=== PATIENT | male | born 1955 | race Caucasian/White ===

== ENCOUNTER → 2021-07-22 | Outpatient (CLI) | payer MEDICARE ==
--- NOTE | 2021-07-22 14:16 | Diagnostic Imaging Report ---
EXAMINATION: Orbits for foreign body. INDICATION: MRI metal check. A single Gonzáles' view was obtained. There are no prior studies available for comparison. FINDINGS: There is no evidence for a radiopaque foreign body overlying the orbits. The osseous structures are intact. There is mucosal thickening of the lateral wall of the right maxillary antrum. The sinuses are otherwise generally clear. IMPRESSION: There is no evidence for a radiopaque foreign body overlying the orbits. Dictated by: Dictated on workstation # [id number]
--- NOTE | 2021-07-22 16:56 | Diagnostic Imaging Report ---
PROCEDURE: MR imaging cervical spine without contrast. TECHNIQUE: Multiplanar, multisequence MR imaging of the cervical spine was performed without contrast. DATE: July 22, 2021. COMPARISON: None. INDICATION: 65-year-old male, neck pain. FINDINGS: The alignment of the cervical spine is unremarkable. There is no evidence of a diffuse marrow infiltrating or replacing process. There is no identified focal concerning bone lesion. The visualized spinal cord is unremarkable. There is mild disc height loss at C4-C5. There is mild disc height loss at C6-C7. There are associated mild endplate degenerative related changes. C2-C3: There is a right lateral recess posterior disc/osteophyte complex. The uncovertebral and facet joints are unremarkable. There is no foraminal narrowing. There is no spinal canal stenosis. C3-C4: There is a small posterior disc/osteophyte complex. The uncovertebral and facet joints are unremarkable. There is moderate bilateral foraminal narrowing. There is no spinal canal stenosis. C4-C5: There is a posterior disc/osteophyte complex. There are mild bilateral uncovertebral degenerative changes. There is severe bilateral foraminal narrowing. There is moderate spinal canal stenosis. C5-C6: There is a small posterior disc/osteophyte complex. There are mild bilateral uncovertebral degenerative changes. There is moderate right and mild left foraminal narrowing. There is mild spinal canal stenosis. C6-C7: There is a posterior disc/osteophyte complex eccentric to the left. There are bilateral uncovertebral degenerative changes. There is severe bilateral foraminal narrowing. There is moderate to severe spinal canal stenosis. C7-T1: There is no disc bulge. The uncovertebral and facet joints are unremarkable. There is no foraminal narrowing. There is no spinal canal stenosis. IMPRESSION: 1. Multilevel disc and uncovertebral degenerative changes of the cervical spine as described level by level above. 2. No identified focal concerning bone lesion. 3. No identified abnormal cord signal. Dictated by: Dictated on workstation # [id number]
== END ==
LOC: RAD 14:00
PROVIDERS: ATTEND Orthopaedic Surgery Orthopaedic Surgery of the Spine
DX: M47.812 Spondylosis without myelopathy or radiculopathy, cervical region (principal); M48.02 Spinal stenosis, cervical region; M25.78 Osteophyte, vertebrae
CPT/HCPCS: 72141

== ENCOUNTER → 2022-02-07 | Outpatient (CLI) | payer MEDICARE ==
--- NOTE | 2022-02-07 14:51 | Diagnostic Imaging Report ---
PROCEDURE: CT cervical spine without contrast. TECHNIQUE: Multiple contiguous axial images were obtained through the cervical spine without the use of intravenous contrast. Sagittal and coronal reformations were then performed. Auto Exposure Controls were utilized during the CT exam to meet ALARA standards for radiation dose reduction. INDICATION: Cervical fusion. No priors for direct comparison. Study correlated with the MR performed in 2020. FINDINGS: Multilevel ACDF has been performed C4, C5, C6 and C7. No findings to suggest pseudoarthrosis or complication. The alignment across, above and below the fusion mass is anatomic. No findings to suggest hardware fracture or loosening. Note is made of incidental incomplete bony incorporation of the midline posterior ring of C1, endplate spurs and uncovertebral joint hypertrophy on the left, moderately stenosed the C4-C5 neural foramen. The right foramen mildly narrowed. At C5-C6 there is mild bony biforaminal stenosis. At C6-C7 endplate spurs and uncovertebral joint hypertrophy result in moderate to severe bony biforaminal narrowing. At C7-T1 no stenosis. Canal narrowing is mild at the C4-C5 and C6-C7 levels. IMPRESSION: Solid appearing multilevel ACDF without complication, endplate spurs and uncovertebral joint hypertrophy result in substantial degrees of multilevel bony foraminal stenoses. Dictated by: Dictated on workstation # [id number]
== END ==
LOC: RAD 10:15
PROVIDERS: ATTEND Orthopaedic Surgery Orthopaedic Surgery of the Spine
DX: M48.02 Spinal stenosis, cervical region (principal); Z98.1 Arthrodesis status
CPT/HCPCS: 72125